=== PATIENT | male | born 1995 | race American Indian/Alaskan Native ===

== ENCOUNTER 2021-07-13 18:26 | Emergency (ER) | payer SELFPAY ==
[2021-07-13] MEDS ORDERED: TETANUS,DIPH,PERTUSS(ACELL) VACCINE 0.5 ML SYRINGE IM ONE (19:32)
[2021-07-13] MEDS ORDERED: ACETAMINOPHEN 500 MG TAB PO ONE (19:32)
[2021-07-13] MEDS ORDERED: IBUPROFEN 600 MG TAB PO ONE (19:32)
[2021-07-13] MEDS ORDERED: AMOXICILLIN/K CLAV 875/125MG TAB PO ONE (19:32)
--- NOTE | 2021-07-13 20:08 | Emergency Department Report ---
ED Animal Bite HPI - General Chief Complaint: Animal Bite Stated Complaint: DOG BITE Source: patient Mode of arrival: Ambulatory Limitations: Other - History of Present Illness Initial Comments: Patient is a 26-year-old -British male with no past medical history presents to the ED with complaint of acute onset painful bleeding puncture wound from a police dog bite that occurred about 1 hour ago. Patient was running away from the police when the dog chased him and caught him and bit him on the right lateral thigh and anterior right knee causing small puncture wounds. Patient states that the pain is mild. Patient states that he is not up-to-date with tetanus vaccination. Patient denies loss of consciousness, dizziness, syncope, nausea, vomiting, numbness and tingling or weakness of lower extremities bilaterally, chest pain or shortness of breath. MD Complaint: animal bite (police dog bite ), animal-related injury, other (Lateral right thigh puncture wound and left knee puncture wound) -: Sudden, hour(s) (2) Location: other (right thigh puncture; left knee puncture) Left: Knee (puncture wound), Right: Thigh (puncture wound and pain) Animal: dog (police dog) Animal Control Notified: No Mechanism: bite, scratch, contact with mucous membr Pain Description: sharp, constant Severity scale (0 -10): 7 Context: provoked (police dog) Associated Symptoms: denies: erythema, discharge from wound, bleeding, fever, chills, rash, loss of consciousness, cough, headache, diaphoresis, shortness of breath Treatments Prior to Arrival: wound dressing(s), pressure - Related Data Patient Tetanus UTD: No (Given during this visit) Previous Rx's Medication Instructions Recorded Last Taken Type Amoxicillin/Potassium Clav 1 each PO Q12H #20 tablet 07/13/21 Unknown Rx [Augmentin 875-125 Tablet] Ibuprofen [Motrin] 600 mg PO Q8H PRN #30 tablet 07/13/21 Unknown Rx Allergies Allergy/AdvReac Type Severity Reaction Status Date / Time No Known Allergies Allergy Unverified 07/13/21 19:10 ED Review of Systems ROS: Stated complaint: DOG BITE Other details as noted in HPI Constitutional: denies: chills, fever Eyes: denies: eye pain, eye discharge, vision change ENT: denies: ear pain, throat pain Respiratory: denies: cough, shortness of breath, wheezing Cardiovascular: denies: chest pain, palpitations Endocrine: no symptoms reported Gastrointestinal: denies: abdominal pain, nausea, diarrhea Genitourinary: denies: urgency, dysuria Musculoskeletal: arthralgia (right thigh pain due to a small puncture wound; lef knee pain due to puncture wound), myalgia. denies: back pain, joint swelling Skin: other (Small puncture wound on the left knee and right lateral thigh). denies: rash, lesions Neurological: denies: headache, weakness, paresthesias Psychiatric: denies: anxiety, depression Hematological/Lymphatic: denies: easy bleeding, easy bruising ED Past Medical Hx - Medications Home Medications: Home Medications Medication Instructions Recorded Confirmed Last Taken Type Amoxicillin/Potassium Clav 1 each PO Q12H #20 tablet 07/13/21 Unknown Rx [Augmentin 875-125 Tablet] Ibuprofen [Motrin] 600 mg PO Q8H PRN #30 tablet 07/13/21 Unknown Rx ED Physical Exam - General Limitations: Other General appearance: alert, in no apparent distress - Head Head exam: Present: atraumatic, normocephalic, normal inspection - Eye Eye exam: Present: normal appearance, PERRL, EOMI Pupils: Present: normal accommodation - ENT ENT exam: Present: normal exam, normal orophraynx, mucous membranes moist, TM's normal bilaterally, normal external ear exam - Neck Neck exam: Present: normal inspection, full ROM - Respiratory Respiratory exam: Present: normal lung sounds bilaterally. Absent: respiratory distress, wheezes, rales, rhonchi, chest wall tenderness, accessory muscle use, decreased breath sounds - Cardiovascular Cardiovascular Exam: Present: regular rate, normal rhythm, normal heart sounds. Absent: systolic murmur, diastolic murmur, rubs, gallop - GI/Abdominal GI/Abdominal exam: Present: soft, normal bowel sounds. Absent: tenderness, guarding, rebound, hyperactive bowel sounds, hypoactive bowel sounds, organomegaly - Extremities Exam Extremities exam: Present: normal inspection, full ROM, tenderness (Palpable mild left knee and lateral right thigh tenderness due to bleeding small puncture wounds), normal capillary refill. Absent: pedal edema, calf tenderness - Back Exam Back exam: Present: normal inspection, full ROM. Absent: tenderness, CVA tenderness (R), CVA tenderness (L), muscle spasm, paraspinal tenderness, vertebral tenderness - Neurological Exam Neurological exam: Present: alert, oriented X3, CN II-XII intact, normal gait, reflexes normal - Psychiatric Psychiatric exam: Present: normal affect, normal mood - Skin Skin exam: Present: warm, dry, intact, normal color, other (Bleeding small puncture wound with localized tenderness on lateral right thigh and anterior left knee) Critical care attestation.: If time is entered above; I have spent that time in minutes in the direct care of this critically ill patient, excluding procedure time. ED Disposition Clinical Impression: Dog bite of multiple sites of lower extremity Qualifiers: Encounter type: initial encounter Laterality: unspecified laterality Qualified Code(s): S81.859A - Open bite, unspecified lower leg, initial encounter; W54.0XXA - Bitten by dog, initial encounter Puncture wound of lower extremity Qualifiers: Encounter type: initial encounter Laterality: unspecified laterality Qualified Code(s): S81.839A - Puncture wound without foreign body, unspecified lower leg, initial encounter Disposition: HOME / SELF CARE / HOMELESS Is pt being admited?: No Does the pt Need Aspirin: No Condition: Stable Instructions: Animal Bite, Adult, [id number], Puncture Wound, [id number] Additional Instructions: Take medication with food, drink plenty of fluids and follow-up with your primary care physician in 7 to 10 days for reevaluation. Return to the ED immediately if symptoms get worse. Prescriptions: Amoxicillin/Potassium Clav [Augmentin 875-125 Tablet] 1 each PO Q12H #20 tablet Ibuprofen [Motrin] 600 mg PO Q8H PRN #30 tablet PRN Reason: Pain Referrals: [facility] [Provider Group] - 7-10 days Time of Disposition: 20:12 Print Language: [place]
[2021-07-13 20:09] VITALS: BP 158/105
== END 2021-07-13 20:44 | disposition home or self-care (01) ==
LOC: ED 18:26
DX: S71.131A Puncture wound without foreign body, right thigh, initial encounter (principal); S81.031A Puncture wound without foreign body, right knee, initial encounter; W54.0XXA Bitten by dog, initial encounter; Y93.02 Activity, running; Y92.89 Other specified places as the place of occurrence of the external cause; Y99.8 Other external cause status
CPT/HCPCS: 99282